=== PATIENT | male | born 1965 | race Caucasian/White ===

== ENCOUNTER 2021-04-11 15:59 | Inpatient (IN) | payer MEDICARE, OTHER ==
[~2021-04-11] VITALS: Ht 172.7 cm; Wt 98.0 kg
[~2021-04-11 15:59] MED LIST: COZAAR50 MG PO; GABAPENTIN300 MG PO; GLUCOPHAGE1000 MG PO; ISOSORBIDE MONO60 MG PO; LANTUS100 UNIT/1 SC; TESTOSTERO100 MG/1 M IM; TOPROL XL50 MG PO
[2021-04-11 16:50] LABS: HEMOGLOBIN 16.5 gm/dl (14.0-17.5); RED BLOOD COUNT 5.69 M/UL (4.20-5.50); WHITE BLOOD COUNT 7.4 K/UL (4.5-11.0)
[2021-04-11 17:15] LABS: BUN/CREATININE RATIO 15 (0-10)
[2021-04-11] MEDS ORDERED: NITROSTAT0.3 MG SL (21:24)
[2021-04-11] MEDS ORDERED: LEVEMIR100 UNIT/1 SQ ×2 (21:24→21:25)
[2021-04-11] MEDS ORDERED: RANEXA1000 MG PO (21:25)
[2021-04-12 03:06] LABS: HEMOGLOBIN 15.4 gm/dl (14.0-17.5); RED BLOOD COUNT 5.37 M/UL (4.20-5.50); WHITE BLOOD COUNT 6.1 K/UL (4.5-11.0)
[2021-04-12 04:30] LABS: BUN/CREATININE RATIO 14 (0-10)
[2021-04-13] MEDS ORDERED: ASPIRIN EC81 MG PO (10:40)
[2021-04-13] MEDS ORDERED: COZAAR 50MG TAB50 MG PO (10:40)
[2021-04-13] MEDS ORDERED: METOPROLOL SUCC50 MG PO (10:40)
[2021-04-13] MEDS ORDERED: ISOSORBIDE MONO60 MG PO (10:40)
[2021-04-15 18:50] LABS: HEMOGLOBIN 14.9 gm/dl (14.0-17.5); RED BLOOD COUNT 5.25 M/UL (4.20-5.50); WHITE BLOOD COUNT 6.9 K/UL (4.5-11.0)
[2021-04-15 19:15] LABS: BUN/CREATININE RATIO 15 (0-10)
[2021-04-16 03:07] LABS: HEMOGLOBIN 14.7 gm/dl (14.0-17.5); RED BLOOD COUNT 5.22 M/UL (4.20-5.50); WHITE BLOOD COUNT 7.2 K/UL (4.5-11.0)
[2021-04-16 03:24] LABS: BUN/CREATININE RATIO 15 (0-10)
[2021-04-16] MEDS ORDERED: ATORVASTATIN CA20 MG PO (08:45)
[2021-04-16] MEDS ORDERED: BRILINTA 90 MG90 MG PO (08:45)
== END 2021-04-16 08:46 | disposition home or self-care (01) | DRG 247 ==
LOC: ER1 15:59 → M/S 19:01 → CDU 19:01 → M/S 20:25 → PROG CARE 04-15 10:08
PROVIDERS: Emergency Medicine; Internal Medicine Interventional Cardiology; ADMIT Internal Medicine
PROC: 4A023N7 Measurement of Cardiac Sampling and Pressure, Left Heart, Percutaneous Approach (ICD-10-PCS; principal; 2021-04-12)
PROC: 027034Z Dilation of Coronary Artery, One Artery with Drug-eluting Intraluminal Device, Percutaneous Approach (ICD-10-PCS; 2021-04-12)
PROC: B2111ZZ Fluoroscopy of Multiple Coronary Arteries using Low Osmolar Contrast (ICD-10-PCS; 2021-04-12)
PROC: B2181ZZ Fluoroscopy of Left Internal Mammary Bypass Graft using Low Osmolar Contrast (ICD-10-PCS; 2021-04-12)
DX: I25.119 Atherosclerotic heart disease of native coronary artery with unspecified angina pectoris (principal); I10 Essential (primary) hypertension; E78.5 Hyperlipidemia, unspecified; E11.9 Type 2 diabetes mellitus without complications; Z20.822 Contact with and (suspected) exposure to COVID-19; I25.82 Chronic total occlusion of coronary artery; Z95.1 Presence of aortocoronary bypass graft; Z98.890 Other specified postprocedural states; Z90.49 Acquired absence of other specified parts of digestive tract; Z82.49 Family history of ischemic heart disease and other diseases of the circulatory system; Z79.82 Long term (current) use of aspirin; Z79.899 Other long term (current) drug therapy; Z79.4 Long term (current) use of insulin
CPT/HCPCS: 36415; 36600; 71045; 78452; 80048; 80053; 80061; 82550; 82553; 82962; 83874; 84484; 85025; 85027; 85347; 86140; 93005; 93017; 96372; 99152; 99153; 99285; A9502; C1725; C1769; C1874; C1887; C9600; G0378; J1170; J1644; J1650; J2250; J2785; J3010; J7040; Q9967; U0002

== ENCOUNTER → 2021-05-19 | Outpatient (CLI) | payer MEDICARE ==
[~2021-05-19] MED LIST changes: +ASPIRIN EC81 MG PO; +ATORVASTATIN CA20 MG PO; +BRILINTA 90 MG90 MG PO; +COZAAR 50MG TAB50 MG PO; +LEVEMIR100 UNIT/1 SQ; +METOPROLOL SUCC50 MG PO; +NITROSTAT0.3 MG SL; +RANEXA1000 MG PO
== END ==
LOC: HEART 5 12:53
DX: I25.10 Atherosclerotic heart disease of native coronary artery without angina pectoris (principal); I25.5 Ischemic cardiomyopathy; I42.0 Dilated cardiomyopathy; I51.9 Heart disease, unspecified; I51.7 Cardiomegaly
CPT/HCPCS: 93306

== ENCOUNTER → 2021-06-09 | Outpatient (CLI) | payer MEDICARE | LOC: HEART 5 09:10 | DX: R06.00 Dyspnea, unspecified (principal) | CPT/HCPCS: 94060; 94729 ==